=== PATIENT | female | born 2000 | race Two or more races ===

== ENCOUNTER 2021-06-11 20:11 | Emergency (ER) | payer OTHER ==
[~2021-06-11] VITALS: Ht 175.3 cm; Wt 111.1 kg
== END 2021-06-11 22:36 | disposition home or self-care (01) ==
LOC: ER 20:11 → EMR PED 20:40 → ER 20:40 → EMR PED 22:36
DX: U07.1 COVID-19 (principal); B34.9 Viral infection, unspecified

== ENCOUNTER 2022-07-04 10:11 | Emergency (ER) | payer OTHER ==
[~2022-07-04] VITALS: Ht 172.7 cm; Wt 106.6 kg
[2022-07-04] MEDS ORDERED: CHLORASEPTIC T1 EACH PO (12:45)
== END 2022-07-04 13:07 | disposition home or self-care (01) ==
LOC: ER 10:11 → EMR PED 10:15
DX: U07.1 COVID-19 (principal)